=== PATIENT | female | born 1940 | race Caucasian/White ===

== ENCOUNTER 2016-10-02 19:32 | Emergency (ER) | payer BC, MEDICARE ==
[~2016-10-02] VITALS: Ht 152.4 cm; Wt 57.6 kg
[2016-10-02] MEDS ORDERED: Xarelto 10mg tab ORAL SCH (20:00)
[2016-10-02 20:26] VITALS: BP 155/85
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
[2016-10-02] MEDS ORDERED: XARELTO10 MG ORAL (20:35)
[2016-10-02] MEDS ORDERED: TYLENOL EXTRA500 MG ORAL (20:35)
[2016-10-02 21:15] VITALS: BP 155/85
[2016-10-07] MEDS ORDERED: ATENOLOL25 MG ORAL (10:28)
== END 2016-10-02 21:15 | disposition home or self-care (01) ==
LOC: EDBD 19:32 → EMR 20:03
DX: I82.4Z2 Acute embolism and thrombosis of unspecified deep veins of left distal lower extremity (principal); Z88.8 Allergy status to other drugs, medicaments and biological substances; Z96.659 Presence of unspecified artificial knee joint
CPT/HCPCS: 99284

== ENCOUNTER 2016-10-07 10:39 | Emergency (ER) | payer BC ==
[~2016-10-07] VITALS: Ht 167.6 cm; Wt 72.6 kg
[~2016-10-07 10:39] MED LIST: ATENOLOL25 MG ORAL; TYLENOL EXTRA500 MG ORAL; XARELTO10 MG ORAL
--- NOTE | 2016-10-07 10:45 | Emergency Room Report ---
History of Present Illness General Chief Complaint: Lower Extremity Injury Source: Patient, Medical Record, EMS Present Illness HPI Patient has been seen in this institution the past. [place]. Who apparently suffered a fracture or of her hip and subsequent DVT status post surgery in [place]. She is currently homeless and has been seen at multiple institutions over the last few weeks. Most recently she reports that she was at [facility] and discharged and given a stay at a hotel which he left today. She has a wheelchair as well as a cane for ambulation and mobility. She states that she has no defecation and she does not believe she can get any of her prescriptions filled. At multiple institutions per record review as well as this institution she is been prescribe pain medicines and blood thinners for DVT. DVT is been confirmed at outside hospitals and per discussion with us. She is asking for social work to discuss for housing. There's been no reported fall no reported chest pain or shortness of breath. She does state she is concerned about blood clots transferring to her lungs. When questioned whether she would take medications as prescribed she said there is no way she can. Allergies: Coded Allergies: DIPHENHYDRAMINE (Verified Allergy, Unknown, 10/02/16) POVIDONE-IODINE (Verified Allergy, Unknown, 10/02/16) SOAP (Verified Allergy, Unknown, 10/02/16) ZOLPIDEM (Verified Allergy, Unknown, 10/02/16) Patient History Past Medical History: see triage record, old chart reviewed Social History: Denies: alcohol use, drug use, smoking Now: No Immunizations: UTD Reviewed Nursing Documentation: PMH: Agreed Nursing Documentation-PMH Hx Cardiac Problems: Yes - RI Hx Hypertension: Yes Hx Diabetes: Yes Hx Seizures: Yes - stress induced Review of Systems Musculoskeletal: Reports: joint pain, muscle stiffness All Other Systems: negative except mentioned in HPI Physical Exam Vital Signs Date Time Temp Pulse Resp B/P Pulse Ox O2 Delivery O2 Flow Rate FiO2 10/07/16 10:21 98.1 124 16 146/80 97 Room Air Sp02 EP Interpretation: reviewed, normal General Appearance: alert, GCS 15, non-toxic, obese, other - lying in bed, initially refusing to speak with me. Head: atraumatic Eyes: bilateral eye normal inspection ENT: normal ENT inspection, hearing grossly normal, normal voice Neck: normal inspection, full range of motion, supple, no bony tend Respiratory: normal inspection, lungs clear, normal breath sounds, no respiratory distress, no retraction, no wheezing Cardiovascular #1: regular rate, rhythm, no edema, tachycardia Gastrointestinal: normal inspection, normal bowel sounds, non tender, soft, no guarding, no hernia Genitourinary: no CVA tenderness Musculoskeletal: back normal, normal range of motion, other - some tenderneness on movement of the left hip, Neurologic: normal inspection, alert, responsive, speech normal Psychiatric: normal inspection, judgement/insight normal, mood/affect normal Skin: normal color, no rash, other - healing surgical scar on left hip Medical Decision Making Diagnostic Impression: Primary Impression: Injury of lower extremity Additional Impression: DVT (deep venous thrombosis) ER Course Patient is here, by ambulance, with no acute medical need but certainly social issues. She has a wheelchair as well as a cane and no new symptoms and/or sign of infection or worsening trauma. She was agitated as well as difficult to examine and provide history as she is absent with the overall social situation. There is uncertainty of drug use though she does not appear intoxicated at this time. I had her psychotherapist social worker me with her to provide resources, assisted as well as advice. I will review fill prescriptions for blood thinners as well as pain control. The patient we [facility] as well as with shoulder resources provided. Reevaluation Time: 11:39 Last Vital Signs Date Time Temp Pulse Resp B/P Pulse Ox O2 Delivery O2 Flow Rate FiO2 10/07/16 10:21 98.1 124 16 146/80 97 Room Air Status: unchanged Disposition: HOME, SELF-CARE Condition: Stable Scripts Tramadol Hcl* (ULTRAM*) 50 Mg Tablet 50 MG ORAL Q6H Y for For Pain, #15 TAB 0 Refills Prov: Miky Stinson MD 10/07/16 Rivaroxaban (XARELTO*) 10 Mg Tablet 10 MG ORAL DAILY, #30 TAB 0 Refills Prov: Miky Stinson MD 10/07/16 Miky Stinson MD Oct 07, 2016 10:45
[2016-10-07] MEDS ORDERED: TRAMADOL HCL50 MG ORAL (11:10)
[2016-10-07] MEDS ORDERED: XARELTO10 MG ORAL (11:10)
[2016-10-07 11:59] VITALS: BP 150/84
== END 2016-10-07 11:59 | disposition home or self-care (01) ==
LOC: EDBD 10:39 → EMR 11:27
DX: S79.919A Unspecified injury of unspecified hip, initial encounter (principal); I82.409 Acute embolism and thrombosis of unspecified deep veins of unspecified lower extremity; Z59.0 Homelessness; I10 Essential (primary) hypertension; I25.2 Old myocardial infarction; E11.9 Type 2 diabetes mellitus without complications
CPT/HCPCS: 82962; 99284